=== PATIENT | male | born 1960 | race Caucasian/White ===

== ENCOUNTER 2016-03-28 19:02 | Emergency (ER) | payer SELFPAY ==
[2016-03-28] MEDS ORDERED: Sodium Chloride 0.9% 1,000 ML ONE (19:49)
[2016-03-28 20:12] LABS: #Basophils 0.1 thou/uL (0.0-0.2); #Eosinphils 0.1 thou/uL (0.0-0.7); #Lymphocytes 2.5 thou/uL (1.20-3.40); #Neutrophils 6.4 thou/uL (1.40-6.50); %Basophils 0.7 % (0.0-1.0); %Eosinophils 1.4 % (0.0-10.0); %Lymphocytes 24.4 % (21.0-51.0); %Monocytes 9.6 % (0.0-10.0); Red Blood Cell (RBC) Count 4.18 mill/uL (4.70-6.10); White Blood Cell (WBC) Count 10.1 thou/uL (4.8-10.8)
[2016-03-28 20:22] LABS: ALT (SGPT) 21 U/L (0-55); AST (SGOT) 23 U/L (5-34); Alkaline Phosphatase 109 U/L (40-150); Anion Gap 14 mmol/L (10-20); BUN (Urea Nitrogen) 18 mg/dL (8.4-25.7); Bilirubin, Total 0.2 mg/dL (0.2-1.2); Calc. Creatinine Clearance 0 mL/min (70-130); Carbon Dioxide 24 mmol/L (22-29); Chloride 108 mmol/L (98-107); Estimated GFR-MDRD Greater than 90; Globulin 2.7 g/dL (2.4-3.5); Protein, Total 6.8 g/dL (6.0-8.3)
--- NOTE | 2016-03-28 20:53 | ERRECORD ---
[facility] EMERGENCY RECORD ADMIN (19:58 MBOS) MERGE: Ambulance SatMar 28, 2016 18:54. HPI SEIZURE (19:18 JLOY) CHIEF COMPLAINT: Patient presents for evaluation of seizure, Patient presents for evaluation of postictal state, Patient presents for evaluation of Pt with a history of seizures. Friend called EMS for a seizure this am. Unk duration. Pt postictal when EMS arrived. Pt reports he doesn't remember anything before his arrival to the ER. Pt reports he takes dilantin 5tablets a day and he took it this am. HISTORIAN: History provided by patient, Additional history obtained from EMS. LOCATION: No localizing symptoms. QUALITY: Seizure quality described as 'seizure'. TIME COURSE: Patient unable to describe onset of symptoms, Symptoms have resolved. ASSOCIATED WITH: Associated with alcohol use, for greater than 6 months, No associated drug use, No associated fever, No associated headache, No associated palpitations, No associated trauma, PT with chronic alcohol use daily. EXACERBATED BY: Patient's condition exacerbated by nothing. RELIEVED BY: Patient's condition relieved spontaneously. ROS (19:20 JLOY) CONSTITUTIONAL: Historian denies chills, denies fever. EYES: Historian denies photophobia, denies vision changes. ENT: Historian denies rhinorrhea, denies sore throat. CARDIOVASCULAR: Historian denies chest pain, denies palpitations. RESPIRATORY: Historian denies cough, denies shortness of breath, denies sputum. GI: Historian denies abdominal pain, denies diarrhea, denies nausea, denies vomiting. GENITOURINARY MALE: Historian denies dysuria, denies hematuria. MUSCULOSKELETAL: Historian denies arthralgias, denies back pain, denies myalgias, denies neck pain. SKIN: Historian denies rash, denies skin changes. NEUROLOGIC: Historian denies dizziness, denies headache, denies paralysis, denies paresthesias, denies sensory changes. PAST MEDICAL HISTORY MEDICAL HISTORY: Flu vaccine not up to date, Tetanus immunization up to date, Pneumococcal vaccine not up to date, Past medical history includes neurological disease, generalized seizures. (19:09 MBOS) MALE SURGICAL HISTORY: Patient has no surgical history. (19:09 MBOS) PSYCHIATRIC HISTORY: No previous psychiatric history. (19:09 MBOS) SOCIAL HISTORY: Patient drinks every day, less than 5 drinks per day, Patient denies drug use, Patient &a-1R&a+25V*p+0X*[id number]*c202B*c15G*c2P*p-0X&a-25V&a+1R Name: Kiran Ying : 1960 M56 MedRec: [id number] AcctNum: [id number] Prepared: SatMar 28, 2016 20:47 by Interface Page 1 of 3 pMD [facility] EMERGENCY RECORD currently uses tobacco, smokes cigarettes, daily, Patient smokes 2 packs per day, "quite a bit sometimes" unsure how many packs. (19:09 MBOS) NOTES: Nursing records reviewed, Agree with nursing records. (19:23 JLOY) KNOWN ALLERGIES No Known Drug Allergies CURRENT MEDICATIONS (19:06 MBOS) Dilantin: CAPSULE : Strength - 30 mg : ORAL Patient Dose: 500 mg Oral 2 times a day. PHENobarbital: TABLET : Strength - 100 mg : ORAL Patient Dose: 1 tab(s) Oral 2 times a day. VITAL SIGNS VITAL SIGNS: BP: 124/85, Pulse: 106, Resp: 16, Temp: 99.2 (Oral), Pain: 0, O2 sat: 97 on Room Air, Time: 03/28/2016 19:04. (19:04 MBOS) BP: 134/86, Pulse: 86, Resp: 13, O2 sat: 99 on Room Air, Time: 03/28/2016 20:11. (20:11 MBOS) PHYSICAL EXAM (19:21 JLOY) CONSTITUTIONAL: Vital signs reviewed, Patient appears non toxic, Patient, oriented to person, oriented to place, responsive to verbal stimuli, Pt knows the year but unsure of day or month. HEAD: Head exam included findings of head atraumatic, normocephalic. EYES: Eye exam included findings of eyelids normal to inspection, Pupils equally round and reactive to light, Extraocular muscles intact, Conjunctiva normal, no nystagmus. ENT: Pharynx exam normal, Uvula exam normal, Tonsil exam normal, Mouth exam included findings of, mucous membranes dry. NECK: Neck exam included findings of normal range of motion, Trachea midline, no cervical adenopathy. RESPIRATORY CHEST: Respiratory exam included findings of no respiratory distress, No wheezing, Rales present, to the right lower lobe, Breath sounds not diminished, Chest exam included findings of chest movement symmetrical, Pt with clear lungs except for some very mild crackles at the Right lung base. CARDIOVASCULAR: Cardiovascular exam included findings of, rate tachycardic, rhythm regular. ABDOMEN MALE: Abdominal exam included findings of abdomen nontender, Bowel sounds normal. BACK: Back exam included findings of normal inspection, range of motion normal. UPPER EXTREMITY: Upper extremity exam included findings of inspection abnormal, abrasions present, minimal &a-1R&a+25V*p+0X*[id number]*c202B*c15G*c2P*p-0X&a-25V&a+1R Name: Kiran Ying : 1960 M56 MedRec: [id number] AcctNum: [id number] Prepared: SatMar 28, 2016 20:47 by Interface Page 2 of 3 pMD [facility] EMERGENCY RECORD small abrasion dorsum of left hand, Radial pulse normal, no cyanosis, no clubbing, no edema. LOWER EXTREMITY: Lower extremity exam included findings of inspection normal, Pedal pulse normal, no edema, no calf tenderness. NEURO: Julian coma scale 15, Neuro exam findings include patient oriented to, person, place, Speech normal, Cranial nerves intact, Deep tendon reflexes normal, no focal motor deficits, no focal sensory deficits, no cerebellar deficits, Babinski's negative, no nystagmus. SKIN: Skin exam included findings of skin warm, dry, and normal in color, no rash. PSYCHIATRIC: Normal affect. MEDICATION ADMINISTRATION SUMMARY Drug Name: Dilantin Extended, Dose Ordered: 300 mg, Route: Oral, Status: Given, Time: 20:40 03/28/2016, Drug Name: *sodium chloride 0.9 % intravenous, Dose Ordered: 1 L, Route: IV Fluid Infusion, Status: Held, Time: 19:52 03/28/2016, *Additional information available in notes, Detailed record available in Medication Service section. DOCTOR NOTES (20:32 JLOY) RE-EVALUATION: The patient's condition has improved, MS returned to normal. AAOx3. TEXT: Will give the pt his evening dose, instruct f/u with his neurologist. PROBLEM LIST No recorded problems DIAGNOSIS (20:31 JLOY) FINAL: PRIMARY: Seizure. PRESCRIPTION No recorded prescriptions DISPOSITION PATIENT: Disposition Type: Discharge, Disposition: *Discharge Home. (20:31 SHANELL) Patient left the department. (20:45 LYNNE) Jacobs: SHANELL=MD Adal, Gerard COXOS=BEATRICE Walter, Noemi &a-1R&a+25V*p+0X*[id number]*c202B*c15G*c2P*p-0X&a-25V&a+1R Name: Kiran Ying : 1960 M56 MedRec: [id number] AcctNum: [id number] Prepared: SatMar 28, 2016 20:47 by Interface Page 3 of 3 pMD MTDD
[2016-03-28 20:54] LABS: Calcium 8.6 mg/dL (7.8-10.44)
--- NOTE | 2016-03-28 21:03 | PICIS ---
[facility] EMERGENCY RECORD ADMIN MERGE: Ambulance SatMar 28, 2016 18:54. (19:58 MBOS) TRIAGE (19:06 MBOS) TRIAGE NOTES: had a seizure at home, brother called 911. Patient states he also had a seizure this morning. Hx of seizures. (19:06 MBOS) PATIENT: NAME: Kiran Ying, AGE: 56, GENDER: male, : Sun 1960, TIME OF GREET: SatMar 28, 2016 19:03, PREFERRED LANGUAGE: Bahamian, ETHNICITY: Not or , ECODE BILLING MAP: [facility] ER, SSN: [id number], Zip Code: [address], KG WEIGHT: 86.18, PHONE: , , , PERSON ID: [id number], PCP: unknown. (19:06 MBOS) COMPLAINT: EMS ROOM 3. (19:06 MBOS) ADMISSION: URGENCY: 3 Urgent, ADMISSION SOURCE: Home, TRANSPORT: AMBULANCE - [facility], BED: ER -03. (19:06 MBOS) ASSESSMENT: Assessment: A&O to person and year. Unsure of month or date. Oriented to place. Had a seizure at home. (19:09 MBOS) PAIN: No complaint of pain. (19:09 MBOS) IMMUNIZATIONS: Flu vaccine not up to date, Tetanus immunization up to date, Pneumococcal vaccine not up to date. (19:09 MBOS) SIRS SCORING: Heart Rate 55-109 (0), Temp range 96.8-101.1 (0), respiratory rate 12-24 (0), Mental Status altered: no (0). (19:09 MBOS) PROVIDERS: TRIAGE NURSE: Noemi Walter RN. (19:06 MBOS) VITAL SIGNS: BP 124/85, Pulse 106, Resp 16, Temp 99.2, (Oral), Pain 0, O2 Sat 97, on Room Air, Time 03/28/2016 19:04. (19:04 MBOS) PREVIOUS VISIT ALLERGIES: No Known Drug Allergies. (19:06 MBOS) No Known Drug Allergies. (19:09 MBOS) KNOWN ALLERGIES No Known Drug Allergies CURRENT MEDICATIONS (19:06 MBOS) Dilantin: CAPSULE : Strength - 30 mg : ORAL Patient Dose: 500 mg Oral 2 times a day. PHENobarbital: TABLET : Strength - 100 mg : ORAL Patient Dose: 1 tab(s) Oral 2 times a day. VITAL SIGNS VITAL SIGNS: BP: 124/85, Pulse: 106, Resp: 16, Temp: 99.2 (Oral), Pain: 0, O2 sat: 97 on Room Air, Time: 03/28/2016 19:04. (19:04 MBOS) BP: 134/86, Pulse: 86, Resp: 13, O2 sat: 99 on Room Air, Time: 03/28/2016 20:11. (20:11 MBOS) NURSING ASSESSMENT: SEIZURE (19:12 MBOS) &a-1R&a+25V*p+0X*r4032T*c202B*c15G*c2P*p-0X&a-25V&a+1R Name: Kiran Ying : 1960 M56 MedRec: [id number] AcctNum: [id number] Prepared: SatMar 28, 2016 20:54 by Interface Page 1 of 9 pMD [facility] EMERGENCY RECORD CONSTITUTIONAL: Patient arrives, via stretcher, via Emergency Medical Services, History obtained from patient, Patient appears comfortable, Patient cooperative, Patient alert, Patient is, oriented to person, oriented to place, oriented to year but not to date or month. In EMS report, he was post-ictal in the ambulance., Skin warm, Skin dry, Skin normal in color, Mucous membranes pink, Mucous membranes moist, Patient is well-groomed, Patient complains of seizure, Per report, patient had a seizure at home and his brother called 911. Also per report, he had a seizure this morning. Patient seems to have intermittent recollection of this, and does not remember the most recent seizure, only remembers arriving to the ER. PAIN: Patient rates pain as 0 out of 10. SEIZURE: Seizure assessment findings include patient not actively seizing, Patient not post-ictal currently, History of seizures, onset as adult, Date of last seizure unknown, Seizure not associated with drug use, Seizure not associated with alcohol use, Seizure not associated with head trauma, Seizure not associated with fever, Notes: No information available on the time and duration of seizure. ENT: Ear assessment findings include ear normal to inspection, Nasal assessment findings include nose normal to inspection, Mouth and throat assessment findings include mouth inspection normal, no associated fever, no associated headache, no associated decrease in oral intake, Notes: Patient denies any other complaints. SAFETY: Side rails up, Cart/Stretcher in lowest position, Call light within reach, Hospital ID band on, Seizure precautions:, side rails padded, restrictive clothing removed or loosened, room lights dimmed, noise reduced. NURSING PROCEDURE: WEBSPHERE ARCHITECT (19:40 MBOS) PATIENT IDENTIFIER: Patient actively involved in identification process, Patient's identity verified by patient stating name, Patient's identity verified by patient stating date, Patient's identity verified by hospital ID bracelet. WEBSPHERE ARCHITECT: Cardiac monitoring indicated for seizures, tachycardia, Patient placed on policy writer typist, Patient placed on non-invasive blood pressure monitor, with disposable blood pressure cuff applied, Patient placed on continuous pulse oximetry, Adult/pediatric oxisensor applied, Oxygen saturation 99%. SAFETY: Side rails up, Cart/Stretcher in lowest position, Call light within reach, Hospital ID band on. NURSING PROCEDURE: DISCHARGE NOTE (20:41 MBOS) DISCHARGE: Patient discharged to home, ambulating without assistance, patient walking, unaccompanied, Summary of Care printed/ provided, Discharge instructions given to patient, Simple or moderate discharge teaching performed, Above person(s) verbalized understanding of discharge instructions and follow-up care, Patient treated and evaluated by physician. &a-1R&a+25V*p+0X*o0401S*c202B*c15G*c2P*p-0X&a-25V&a+1R Name: Kiran Ying : 1960 M56 MedRec: [id number] AcctNum: [id number] Prepared: SatMar 28, 2016 20:54 by Interface Page 2 of 9 D [facility] EMERGENCY RECORD NURSING PROCEDURE: IV PATIENT IDENITIFIER: Patient actively involved in identification process, Patient's identity verified by patient stating name, Patient's identity verified by patient stating date, Patient's identity verified by hospital ID bracelet. (19:53 MBOS) IV SITE 1: IV therapy indicated for hydration, IV established, to the right antecubital, using an 18 gauge catheter, in one attempt, Saline lock established, Flushed with normal saline (mls): 10, Labs drawn at time of placement, labeled in the presence of the patient and sent to lab. (19:53 MBOS) FOLLOW-UP SITE 1: IV discontinued, due to patient being discharged, catheter intact. (20:41 MBOS) SAFETY: Side rails up, Cart/Stretcher in lowest position, Call light within reach, Hospital ID band on. (19:53 MBOS) NURSING PROCEDURE: NURSE NOTES (19:55 MBOS) NURSES NOTES: Patient is improving, Patient in no apparent distress, Beverage given to patient, Notes: Patient expressed that he does not want the IV fluids, urine tests, etc and he just wants to go home. He states, "Is all this really necessary? I'm fine. I just want to go home." Dr. Galeas notified and fluids held at this time pending bloodwork, which has already been drawn and sent to lab. NURSING PROCEDURE: TRANSPORT TO TESTS (19:28 KHER) PATIENT IDENTIFIER: Patient actively involved in identification process. TRANSPORT TO TESTS: Transport indicated to facilitate diagnosis, Patient transported to x-ray, via cart, Accompanied by x-ray nurse technician, Patient arrived in location at 1929, Patient departed location at 1935. FOLLOW-UP: After procedure, patient returned to emergency department. SAFETY: Side rails up, Cart/Stretcher in lowest position, Call light within reach, Hospital ID band on. ORDER DETAILS Order Name: Alcohol, Status: Active, Time: 19:17 03/28/2016, User: SHANELL, - Ordered for: MD Galeas Joshua, - Entered by: MD Galeas Joshua - SatMar 28, 2016 19:17, - Quantity: 1, Order Name: WEBSPHERE ARCHITECT ED, Status: Done, Time: 19:27 03/28/2016, User: LYNNE, - Ordered for: MD Galeas Joshua, - Entered by: MD Galeas Joshua - SatMar 28, 2016 19:17, - Quantity: 1, Order Name: CBC with Differential, Status: Active, Time: 19:17 &a-1R&a+25V*p+0X*a4389X*c202B*c15G*c2P*p-0X&a-25V&a+1R Name: Kiran Ying : 1960 M56 MedRec: [id number] AcctNum: [id number] Prepared: SatMar 28, 2016 20:54 by Interface Page 3 of 9 pMD [facility] EMERGENCY RECORD 03/28/2016, User: SHANELL, - Ordered for: MD Galeas Joshua, - Entered by: MD Galeas Joshua - SatMar 28, 2016 19:17, - Quantity: 1, Order Name: Comprehensive Metabolic Panel, Status: Active, Time: 19:17 03/28/2016, User: SHANELL, - Ordered for: MD Galeas Joshua, - Entered by: MD Galeas Joshua - SatMar 28, 2016 19:17, - Quantity: 1, Order Name: Dilantin, Status: Active, Time: 19:17 03/28/2016, User: SHANELL, - Ordered for: MD Galeas Joshua, - Entered by: MD Galeas Joshua - SatMar 28, 2016 19:17, - Quantity: 1, Order Name: SALINE LOCK, Status: Done, Time: 19:27 03/28/2016, User: LYNNE, - Ordered for: MD Galeas Joshua, - Entered by: MD Galeas Joshua - SatMar 28, 2016 19:17, - Quantity: 1, Order Name: Urinalysis with Microscopic, Status: Active, Time: 19:17 03/28/2016, User: SHANELL, - Ordered for: MD Galeas Joshua, - Entered by: MD Galeas Joshua - SatMar 28, 2016 19:17, - Quantity: 1, Order Name: XR Chest Pa & Lat STANDARD, Status: Active, Time: 19:18 03/28/2016, User: SHANELL, - Ordered for: MD Galeas Joshua, - Entered by: MD Galeas Joshua - SatMar 28, 2016 19:18, - Quantity: 1. MEDICATION ADMINISTRATION SUMMARY Drug Name: Dilantin Extended, Dose Ordered: 300 mg, Route: Oral, Status: Given, Time: 20:40 03/28/2016, Drug Name: *sodium chloride 0.9 % intravenous, Dose Ordered: 1 L, Route: IV Fluid Infusion, Status: Held, Time: 19:52 03/28/2016, *Additional information available in notes, Detailed record available in Medication Service section. MEDICATION SERVICE Dilantin Extended: Order: Dilantin Extended (phenytoin sodium extended) - Dose: 300 mg : Oral Ordered by: Gerard Galeas MD Entered by: Gerard Galeas MD SatMar 28, 2016 20:31 , Acknowledged by: Noemi Walter RN SatMar 28, 2016 20:33 Documented as given by: Noemi Walter RN SatMar 28, 2016 20:40 Patient, Medication, Dose, Route and Time verified prior to administration. Patient appears Awake and alert- acceptable, Correct patient, time, route, dose and medication confirmed prior to administration, Patient &a-1R&a+25V*p+0X*e3928S*c202B*c15G*c2P*p-0X&a-25V&a+1R Name: Kiran Ying : 1960 M56 MedRec: [id number] AcctNum: [id number] Prepared: SatMar 28, 2016 20:54 by Interface Page 4 of 9 pMD [facility] EMERGENCY RECORD advised of actions and side-effects prior to administration, Allergies confirmed and medications reviewed prior to administration, Patient in position of comfort, Side rails up, Cart in lowest position. sodium chloride 0.9 % intravenous: Order: sodium chloride 0.9 % intravenous (0.9 % sodium chloride) - Dose: 1 L : IV Fluid Infusion Notes: (Bolus) Ordered by: Gerard Galeas MD Entered by: Gerard Galeas MD SatMar 28, 2016 19:18 , Acknowledged by: Noemi Walter RN SatMar 28, 2016 19:48, Held by: Noemi Walter RN SatMar 28, 2016 19:52 Reason: Patient refused. HPI SEIZURE (19:18 JL) CHIEF COMPLAINT: Patient presents for evaluation of seizure, Patient presents for evaluation of postictal state, Patient presents for evaluation of Pt with a history of seizures. Friend called EMS for a seizure this am. Unk duration. Pt postictal when EMS arrived. Pt reports he doesn't remember anything before his arrival to the ER. Pt reports he takes dilantin 5tablets a day and he took it this am. HISTORIAN: History provided by patient, Additional history obtained from EMS. LOCATION: No localizing symptoms. QUALITY: Seizure quality described as 'seizure'. TIME COURSE: Patient unable to describe onset of symptoms, Symptoms have resolved. ASSOCIATED WITH: Associated with alcohol use, for greater than 6 months, No associated drug use, No associated fever, No associated headache, No associated palpitations, No associated trauma, PT with chronic alcohol use daily. EXACERBATED BY: Patient's condition exacerbated by nothing. RELIEVED BY: Patient's condition relieved spontaneously. ROS (19:20 JLOY) CONSTITUTIONAL: Historian denies chills, denies fever. EYES: Historian denies photophobia, denies vision changes. ENT: Historian denies rhinorrhea, denies sore throat. CARDIOVASCULAR: Historian denies chest pain, denies palpitations. RESPIRATORY: Historian denies cough, denies shortness of breath, denies sputum. GI: Historian denies abdominal pain, denies diarrhea, denies nausea, denies vomiting. GENITOURINARY MALE: Historian denies dysuria, denies hematuria. MUSCULOSKELETAL: Historian denies arthralgias, denies back pain, denies myalgias, denies neck pain. SKIN: Historian denies rash, denies skin changes. NEUROLOGIC: Historian denies dizziness, denies headache, denies paralysis, denies paresthesias, denies sensory changes. &a-1R&a+25V*p+0X*k5289T*c202B*c15G*c2P*p-0X&a-25V&a+1R Name: Kiran Ying : 1960 M56 MedRec: [id number] AcctNum: [id number] Prepared: SatMar 28, 2016 20:54 by Interface Page 5 of 9 pMD [facility] EMERGENCY RECORD PAST MEDICAL HISTORY MEDICAL HISTORY: Flu vaccine not up to date, Tetanus immunization up to date, Pneumococcal vaccine not up to date, Past medical history includes neurological disease, generalized seizures. (19:09 MBOS) MALE SURGICAL HISTORY: Patient has no surgical history. (19:09 MBOS) PSYCHIATRIC HISTORY: No previous psychiatric history. (19:09 MBOS) SOCIAL HISTORY: Patient drinks every day, less than 5 drinks per day, Patient denies drug use, Patient currently uses tobacco, smokes cigarettes, daily, Patient smokes 2 packs per day, "quite a bit sometimes" unsure how many packs. (19:09 MBOS) NOTES: Nursing records reviewed, Agree with nursing records. (19:23 JLOY) PHYSICAL EXAM (19:21 JLOY) CONSTITUTIONAL: Vital signs reviewed, Patient appears non toxic, Patient, oriented to person, oriented to place, responsive to verbal stimuli, Pt knows the year but unsure of day or month. HEAD: Head exam included findings of head atraumatic, normocephalic. EYES: Eye exam included findings of eyelids normal to inspection, Pupils equally round and reactive to light, Extraocular muscles intact, Conjunctiva normal, no nystagmus. ENT: Pharynx exam normal, Uvula exam normal, Tonsil exam normal, Mouth exam included findings of, mucous membranes dry. NECK: Neck exam included findings of normal range of motion, Trachea midline, no cervical adenopathy. RESPIRATORY CHEST: Respiratory exam included findings of no respiratory distress, No wheezing, Rales present, to the right lower lobe, Breath sounds not diminished, Chest exam included findings of chest movement symmetrical, Pt with clear lungs except for some very mild crackles at the Right lung base. CARDIOVASCULAR: Cardiovascular exam included findings of, rate tachycardic, rhythm regular. ABDOMEN MALE: Abdominal exam included findings of abdomen nontender, Bowel sounds normal. BACK: Back exam included findings of normal inspection, range of motion normal. UPPER EXTREMITY: Upper extremity exam included findings of inspection abnormal, abrasions present, minimal small abrasion dorsum of left hand, Radial pulse normal, no cyanosis, no clubbing, no edema. LOWER EXTREMITY: Lower extremity exam included findings of inspection normal, Pedal pulse normal, no edema, no calf tenderness. NEURO: Julian coma scale 15, Neuro exam findings include patient oriented to, person, place, Speech &a-1R&a+25V*p+0X*i4846M*c202B*c15G*c2P*p-0X&a-25V&a+1R Name: Kiran Ying : 1960 M56 MedRec: [id number] AcctNum: [id number] Prepared: SatMar 28, 2016 20:54 by Interface Page 6 of 9 pMD [facility] EMERGENCY RECORD normal, Cranial nerves intact, Deep tendon reflexes normal, no focal motor deficits, no focal sensory deficits, no cerebellar deficits, Babinski's negative, no nystagmus. SKIN: Skin exam included findings of skin warm, dry, and normal in color, no rash. PSYCHIATRIC: Normal affect. EVENTS TRANSFER: Triage to Emergency Emergency Room -03. (SatMar 28, 2016 19:06 MBOS) Removed from Emergency Emergency Room -03. (20:45 MBOS) DOCTOR NOTES (20:32 JLOY) RE-EVALUATION: The patient's condition has improved, MS returned to normal. AAOx3. TEXT: Will give the pt his evening dose, instruct f/u with his neurologist. PROBLEM LIST No recorded problems DIAGNOSIS (20:31 JLOY) FINAL: PRIMARY: Seizure. DISPOSITION PATIENT: Disposition Type: Discharge, Disposition: *Discharge Home. (20:31 JLOY) Patient left the department. (20:45 MBOS) INSTRUCTION (20:32 JLOY) DISCHARGE: SEIZURE, RECURRENT [ADULT]. FOLLOWUP: Enoch Reed, [place], Neurology, [address] [place] [address], [address], [facility] [address], [phone], Follow up with Specialist as soon as possible. PRESCRIPTION No recorded prescriptions IMAGING *DISCHARGE INSTRUCTIONS RECEIPT: Image captured from scanner. (20:44 MBOS) *SUPPLY CHARGE SHEET: Image captured from scanner. (20:45 MBOS) ADMIN DIGITAL SIGNATURE: MD Galeas Joshua. (20:32 JLOY) MD Galeas Joshua. (20:43 JLOY) RESULTS (20:43 JLOY) LABORATORY: Alcohol Collection DT: SatMar 28, 2016 20:00, Alcohol Less than 10 mg/dL, Range (Less than 10), The pharmacological &a-1R&a+25V*p+0X*t2930C*c202B*c15G*c2P*p-0X&a-25V&a+1R Name: Kiran Ying : 1960 M56 MedRec: [id number] AcctNum: [id number] Prepared: SatMar 28, 2016 20:54 by Interface Page 7 of 9 pMD [facility] EMERGENCY RECORD response to blood alcohol levels may vary from, individual to individual. Negative: Less than 10, mg/dL Toxic: 50 - 100 mg/dL , Depression of GLASS PULVERIZER EQUIPMENT OPERATOR: Greater than 100 mg/dL , Fatalities reported: Greater than 400 mg/dL . Comprehensive Metabolic Panel Collection DT: SatMar 28, 2016 20:00, Sodium 142 mmol/L, Range (136-145), Potassium 4.0 mmol/L, Range (3.5-5.1), *Chloride 108 - H mmol/L, Range (98-107), Carbon Dioxide 24 mmol/L, Range (22-29), Anion Gap 14 mmol/L, Range (10-20), BUN (Urea Nitrogen) 18 mg/dL, Range (8.4-25.7), Creatinine 0.79 mg/dL, Range (0.7-1.3), Estimated GFR-MDRD Greater than 90 , Reference Range for Estimated GFR: Greater than 90, mL/min/1.73 m2 NOTE: The MDRD equation has not been validated for use, with the elderly (over 70 years of age), women, patients with, serious comorbid condition or persons with extremes of body size, muscle, mass, or nutritional status. , Glucose 95 mg/dL, Range (70-105), Bilirubin, Total 0.2 mg/dL, Range (0.2-1.2), Protein, Total 6.8 g/dL, Range (6.0-8.3), NOTE: Plasma values are generally 0.3 to 0.5 g/dL higher than serum values, due to the presence of fibrinogen. , Albumin 4.1 g/dL, Range (3.5-5.0), Globulin 2.7 g/dL, Range (2.4-3.5), Alb/Glob Ratio 1.5 g/dL, Range (1.2-2.2), Alkaline Phosphatase 109 U/L, Range (40-150), AST (SGOT) 23 U/L, Range (5-34), ALT (SGPT) 21 U/L, Range (0-55). Dilantin Collection DT: SatMar 28, 2016 20:00, *Dilantin Less than 1.8 - L ug/mL, Range (10.0-20.0), Therapeutic Range: 10.0 - 20.0 mcg/mL Toxic Range: Greater than 30.0, mcg/mL . CBC with Differential Collection DT: SatMar 28, 2016 20:00, White Blood Cell (WBC) Count 10.1 thou/uL, Range (4.8-10.8), *Red Blood Cell (RBC) Count 4.18 - L mill/uL, Range (4.70-6.10), *Hemoglobin 13.5 - L g/dL, Range (14.0-18.0), Hematocrit 42.0 %, Range (42.0-52.0), &a-1R&a+25V*p+0X*q9347F*c202B*c15G*c2P*p-0X&a-25V&a+1R Name: Kiran Ying : 1960 M56 MedRec: [id number] AcctNum: [id number] Prepared: SatMar 28, 2016 20:54 by Interface Page 8 of 9 pMD [facility] EMERGENCY RECORD *Mean Corpuscular Volume 101.0 - H fl, Range (80.0-94.0), *Mean Corpuscular Hemoglobin 32.4 - H pg, Range (27.0-31.0), Mean Corpuscular HGB CONC 32.2 g/dL, Range (32.0-36.0), RBC Distribution Width 13.1 %, Range (11.5-14.5), Platelet Count 246 thou/uL, Range (130-400), *Mean Platelet Volume 6.0 - L fL, Range (7.4-10.4), %Neutrophils 64.0 %, Range (42.0-75.0), %Lymphocytes 24.4 %, Range (21.0-51.0), %Monocytes 9.6 %, Range (0.0-10.0), %Eosinophils 1.4 %, Range (0.0-10.0), %Basophils 0.7 %, Range (0.0-1.0), #Neutrophils 6.4 thou/uL, Range (1.40-6.50), #Lymphocytes 2.5 thou/uL, Range (1.20-3.40), *#Monocytes 1.0 - H thou/uL, Range (0.11-0.59), #Eosinphils 0.1 thou/uL, Range (0.0-0.7), #Basophils 0.1 thou/uL, Range (0.0-0.2). Jacobs: SHANELL=MD Adal, Gerard ESPINOZA=LIDA Michelle Kayce MBOS=BEATRICE Walter, Noemi &a-1R&a+25V*p+0X*o3135Q*c202B*c15G*c2P*p-0X&a-25V&a+1R Name: Kiran Ying : 1960 M56 MedRec: [id number] AcctNum: [id number] Prepared: SatMar 28, 2016 20:54 by Interface Page 9 of 9 pMD [facility] MEDICATION RECONCILIATION You were seen in the Emergency Department on: SatMar 28, 2016 KNOWN ALLERGIES No Known Drug Allergies MEDICATIONS GIVEN WHILE IN THE EMERGENCY DEPARTMENT Dilantin Extended (phenytoin sodium extended) - Dose: 300 milligram(s) : Oral HOME MEDICATIONS CONTINUE PRESCRIBED Dilantin : CAPSULE : Strength - 30 mg : ORAL Continue as prescribed Patient had been takin mg Oral 2 times a day. PHENobarbital : TABLET : Strength - 100 mg : ORAL Continue as prescribed Patient had been takin tab(s) Oral 2 times a day. &a-1R&a+25V*p+0X*d0307H*c202B*c15G*c2P*p-0X&a-25V&a+1R Name: Parnell, Kiran : 1960 M56 MedRec: [id number] AcctNum: [id number] Prepared: SatMar 28, 2016 20:54 by Interface pMD [facility]Jesus
--- NOTE | 2016-03-28 21:11 | RAD ---
TWO VIEWS OF THE CHEST HISTORY: Seizure. COMPARISON: None. FINDINGS: Single view of the chest shows a normal sized cardiomediastinal silhouette. There is no e vidence of consolidation, mass, or pleural effusion. Mild degenerative changes are seen in the spine . IMPRESSION No evidence of acute cardiopulmonary disease. POS: [facility]
== END 2016-03-28 20:38 | disposition home or self-care (01) ==
LOC: NAV ERS 19:02
DX: R56.9 Unspecified convulsions (principal); F17.210 Nicotine dependence, cigarettes, uncomplicated
CPT/HCPCS: 71020; 80053; 80185; 80307; 85025; 99284; G0479; J7050

== ENCOUNTER 2016-04-07 08:11 | Emergency (ER) | payer SELFPAY ==
[2016-04-07] MEDS ORDERED: Sodium Chloride 0.9% 1,000 ML ONE (08:23)
[2016-04-07 08:39] LABS: #Basophils 0.1 thou/uL (0.0-0.2); #Eosinphils 0.1 thou/uL (0.0-0.7); #Lymphocytes 1.2 thou/uL (1.20-3.40); #Neutrophils 7.3 thou/uL (1.40-6.50); %Basophils 0.8 % (0.0-1.0); %Eosinophils 1.1 % (0.0-10.0); %Lymphocytes 12.6 % (21.0-51.0); %Monocytes 10.5 % (0.0-10.0); Mean Platelet Volume 6.7 fL (7.4-10.4); Red Blood Cell (RBC) Count 3.99 mill/uL (4.70-6.10); White Blood Cell (WBC) Count 9.8 thou/uL (4.8-10.8)
[2016-04-07 08:51] LABS: Dilantin 12.4 ug/mL (10.0-20.0)
[2016-04-07 08:56] LABS: ALT (SGPT) 20 U/L (0-55); AST (SGOT) 21 U/L (5-34); Alkaline Phosphatase 102 U/L (40-150); Anion Gap 11 mmol/L (10-20); BUN (Urea Nitrogen) 22 mg/dL (8.4-25.7); Bilirubin, Total 0.4 mg/dL (0.2-1.2); Calc. Creatinine Clearance 0 mL/min (70-130); Calcium 8.6 mg/dL (7.8-10.44); Carbon Dioxide 21 mmol/L (22-29); Chloride 109 mmol/L (98-107); Estimated GFR-MDRD 83; Globulin 2.8 g/dL (2.4-3.5); Protein, Total 6.7 g/dL (6.0-8.3)
--- NOTE | 2016-04-07 09:12 | ERRECORD ---
[facility] EMERGENCY RECORD ADMIN (08:18 EPIE) MERGE: Ambulance Sat Apr 07, 2016 08:04. HPI SEIZURE (08:26 JLOY) CHIEF COMPLAINT: Patient presents for evaluation of seizure, Patient presents for evaluation of Pt was out hunting and had a seizure. Friend called EMS. Pt reports regular seizures, especially with his recent stress. Pt reports woke up when EMS arrived. No symptoms currently. Last saw Dr. Reed a few weeks ago. Not since last ER visit for the same 10 days ago. HISTORIAN: History provided by patient. LOCATION: No localizing symptoms. QUALITY: Seizure quality described as 'seizure'. TIME COURSE: Sudden onset of symptoms, Symptoms have resolved. ASSOCIATED WITH: Associated with alcohol use, No associated drug use, No associated fever, No associated headache, No associated palpitations, No associated trauma. EXACERBATED BY: Patient's condition exacerbated by stress. RELIEVED BY: Patient's condition relieved spontaneously. ROS (08:28 JLOY) CONSTITUTIONAL: Historian denies chills, denies fever. EYES: Historian denies eye pain, denies eye redness, denies eye discharge. ENT: Historian reports rhinorrhea, denies sore throat. chronic. CARDIOVASCULAR: Historian denies chest pain. RESPIRATORY: Historian denies cough, denies shortness of breath, denies sputum. GI: Historian denies abdominal pain, denies diarrhea, denies nausea, denies vomiting. GENITOURINARY MALE: Historian denies dysuria, denies hematuria. MUSCULOSKELETAL: Historian denies arthralgias, denies back pain, denies myalgias, denies neck pain. SKIN: Historian denies rash, denies skin changes. NEUROLOGIC: Historian denies dizziness, denies headache, denies paralysis, denies paresthesias, denies sensory changes. PAST MEDICAL HISTORY MEDICAL HISTORY: Flu vaccine not up to date, Tetanus immunization up to date, Pneumococcal vaccine not up to date, Past medical history includes neurological disease, generalized seizures. (08:19 BDON) MALE SURGICAL HISTORY: Patient has no surgical history. (08:19 BDON) PSYCHIATRIC HISTORY: No previous psychiatric history. (08:19 BDON) SOCIAL HISTORY: Patient drinks every day, less than 5 drinks per day, Patient denies drug use, Patient currently uses tobacco, smokes cigarettes, daily, Patient smokes 2 packs per day, &a-1R&a+25V*p+0X*k7906E*c202B*c15G*c2P*p-0X&a-25V&a+1R Name: Kiran Ying : 1960 M56 MedRec: [id number] AcctNum: [id number] Prepared: Sat Apr 07, 2016 12:26 by Interface Page 1 of 3 pMD [facility] EMERGENCY RECORD "quite a bit sometimes" unsure how many packs. (08:19 BDON) NOTES: Nursing records reviewed, Agree with nursing records. (08:29 JLOY) KNOWN ALLERGIES No Known Drug Allergies CURRENT MEDICATIONS Dilantin: CAPSULE : Strength - 30 mg : ORAL Patient Dose: 500 mg Oral 2 times a day. (08:16 BDON) Topamax: TABLET : Strength - 100 mg : ORAL Patient Dose: uk. (08:19 BDON) VITAL SIGNS VITAL SIGNS: BP: 129/82, Pulse: 97, Resp: 18, Pain: 0, O2 sat: 100, Time: 04/07/2016 08:13. (08:13 BDON) Temp: 97.8 (Oral), Time: 04/07/2016 08:16. (08:16 BDON) BP: 118/78, Pulse: 90, Resp: 18, O2 sat: 99 on Room Air, Time: 04/07/2016 08:30. (08:30 EPIE) BP: 118/78, Pulse: 89, Resp: 18, Pain: 0, Time: 04/07/2016 08:59. (08:59 BDON) PHYSICAL EXAM (08:28 JLOY) CONSTITUTIONAL: Vital signs reviewed, Patient appears non toxic, Patient alert and oriented to person, place and time. EYES: Eye exam included findings of eyelids normal to inspection, Pupils equally round and reactive to light, Conjunctiva normal. ENT: Pharynx exam normal, Uvula exam normal, Tonsil exam normal, Mouth exam included findings of, mucous membranes dry. NECK: Neck exam included findings of normal range of motion, Trachea midline. RESPIRATORY CHEST: Respiratory exam included findings of no respiratory distress, Breath sounds clear, No wheezing, No rales, No rhonchi, Chest exam included findings of chest movement symmetrical. CARDIOVASCULAR: Cardiovascular exam included findings of heart rate regular rate and rhythm, Heart sounds normal. ABDOMEN MALE: Abdominal exam included findings of abdomen nontender, Bowel sounds normal. BACK: Back exam included findings of normal inspection, range of motion normal. UPPER EXTREMITY: Upper extremity exam included findings of inspection normal, Radial pulse normal, no cyanosis, no clubbing, no edema. LOWER EXTREMITY: Lower extremity exam included findings of inspection normal, no edema, no calf tenderness. NEURO: [place] coma scale 15, Neuro exam findings include patient oriented to person, place and time, Speech normal. &a-1R&a+25V*p+0X*d4213J*c202B*c15G*c2P*p-0X&a-25V&a+1R Name: Kiran Ying : 1960 M56 MedRec: [id number] AcctNum: [id number] Prepared: Sat Apr 07, 2016 12:26 by Interface Page 2 of 3 pMD [facility] EMERGENCY RECORD SKIN: Skin exam included findings of skin warm, dry, and normal in color, no rash. PSYCHIATRIC: Normal affect. MEDICATION ADMINISTRATION SUMMARY Drug Name: *sodium chloride 0.9 % intravenous, Dose Ordered: 1 L, Route: IV Fluid Infusion, Status: Given, Time: 08:32 04/07/2016, *Additional information available in notes, Detailed record available in Medication Service section. DOCTOR NOTES (08:56 JLOY) TEXT: Pt insisted on leaving prior to complete results. Pt appears stable with recurrence of chronic seizure activity. Normal Dilantin level. Will D/C with f/u with Dr. Reed. PROBLEM LIST No recorded problems DIAGNOSIS (08:54 JLOY) FINAL: PRIMARY: Seizure. PRESCRIPTION No recorded prescriptions DISPOSITION PATIENT: Disposition Type: Discharge, Disposition: *Discharge Home. (08:54 JLOY) Patient left the department. (09:06 BDON) Jacobs: NEHAL=BEATRICE Tran, Kaylie PANCHAL=BEATRICE Valverde, Racheal REECE=MD Adal, Gerard &a-1R&a+25V*p+0X*e5346Q*c202B*c15G*c2P*p-0X&a-25V&a+1R Name: Kiran Ying : 1960 M56 MedRec: [id number] AcctNum: [id number] Prepared: Shaheen Apr 07, 2016 12:26 by Interface Page 3 of 3 pMD MTDD
--- NOTE | 2016-04-07 09:17 | PICIS ---
[facility] EMERGENCY RECORD ADMIN MERGE: Ambulance Sat Apr 07, 2016 08:04. (08:18 EPIE) TRIAGE (Sat Apr 07, 2016 08:15 BDON) TRIAGE NOTES: Seizure, currently awake and oriented. ([facility] Apr 07, 2016 08:15 BDON) PATIENT: NAME: Kiran Ying, AGE: 56, GENDER: male, : Sun 1960, TIME OF GREET: Sat Apr 07, 2016 08:12, PREFERRED LANGUAGE: Danish, ETHNICITY: Not or , ECODE BILLING MAP: [facility] ER, SSN: [id number], Zip Code: [address], KG WEIGHT: 86.18, PHONE: , , , PERSON ID: [id number], PCP: out of town. (Sat Apr 07, 2016 08:15 BDON) COMPLAINT: SEIZURE. ([facility] Apr 07, 2016 08:15 BDON) ADMISSION: URGENCY: 3 Urgent, ADMISSION SOURCE: Other, TRANSPORT: AMBULANCE - [facility], BED: TRIAGE. ([facility] Apr 07, 2016 08:15 BDON) ASSESSMENT: Assessment: [facility] brought patient to ER, under a bridge sleeping. Post dicticle on arrival, currently alert and oriented. Blood sugar 121, 127/86, HR 107, 98%. (08:19 BDON) TREATMENTS IN PROGRESS: Site: [facility], Gauge: 18. (08:19 BDON) PROVIDERS: TRIAGE NURSE: Kaylie Tran RN. ([facility] Apr 07, 2016 08:15 BDON) VITAL SIGNS: BP 129/82, Pulse 97, Resp 18, Pain 0, O2 Sat 100, Time 04/07/2016 08:13. (08:13 BDON) PREVIOUS VISIT ALLERGIES: No Known Drug Allergies. (Sat Apr 07, 2016 08:15 BDON) No Known Drug Allergies. (08:19 BDON) KNOWN ALLERGIES No Known Drug Allergies CURRENT MEDICATIONS Dilantin: CAPSULE : Strength - 30 mg : ORAL Patient Dose: 500 mg Oral 2 times a day. (08:16 BDON) Topamax: TABLET : Strength - 100 mg : ORAL Patient Dose: uk. (08:19 BDON) VITAL SIGNS VITAL SIGNS: BP: 129/82, Pulse: 97, Resp: 18, Pain: 0, O2 sat: 100, Time: 04/07/2016 08:13. (08:13 BDON) Temp: 97.8 (Oral), Time: 04/07/2016 08:16. (08:16 BDON) BP: 118/78, Pulse: 90, Resp: 18, O2 sat: 99 on Room Air, Time: 04/07/2016 08:30. (08:30 EPIE) BP: 118/78, Pulse: 89, Resp: 18, Pain: 0, Time: 04/07/2016 08:59. (08:59 BDON) &a-1R&a+25V*p+0X*b9143E*c202B*c15G*c2P*p-0X&a-25V&a+1R Name: Kiran Ying : 1960 M56 MedRec: [id number] AcctNum: [id number] Prepared: Sat Apr 07, 2016 12:31 by Interface Page 1 of 7 pMD [facility] EMERGENCY RECORD NURSING ASSESSMENT: SEIZURE (08:30 BDON) NURSING DIAGNOSIS: Nursing diagnosis: post seizure. CONSTITUTIONAL: Patient arrives, via [facility], History obtained from, Emergency Medical Services, Patient appears comfortable, Patient cooperative, Patient alert, Oriented to person, place and time, Skin warm, Skin dry, Skin normal in color. PAIN: Pain level 0 No Hurt, using faces pain scoring. SEIZURE: History of seizures, Notes: Alert and oriented. ENT: no complaint of congestion. SAFETY: Side rails up, Cart/Stretcher in lowest position, Hospital ID band on, Patient in view of the nursing station, Seizure precautions:, side rails padded. NURSING PROCEDURE: FILING OR REGISTRY CLERK (08:20 EPIE) FILING OR REGISTRY CLERK: Patient placed on cardiac rehabilitation specialist, Patient placed on non-invasive blood pressure monitor, with disposable blood pressure cuff applied, Patient placed on continuous pulse oximetry, Adult/pediatric oxisensor applied. FOLLOW-UP: After procedure, alarms set and on, After procedure, patient tolerating monitoring. NURSING PROCEDURE: DISCHARGE NOTE (08:59 BDON) DISCHARGE: Patient discharged to home, patient walking, unaccompanied, Summary of Care printed/ provided, Patient requested and was provided an electronic copy of Discharge Instructions, Transition record given to patient, Discharge instructions given to patient, Simple or moderate discharge teaching performed, Patient treated and evaluated by physician. VITAL SIGNS: BP: 118, / 78, Pulse: 89, Resp: 18, Pain: 0. NURSING PROCEDURE: IV IV SITE 1: IV established, to the right antecubital, using an 18 gauge catheter, Saline lock established, Notes: IV started by EMS [employer]. (08:22 EPIE) FOLLOW-UP SITE 1: After procedure, no drainage at IV site, After procedure, no swelling at IV site, After procedure, no redness at IV site. (08:22 EPIE) IV discontinued, by patient, catheter intact. (08:53 BDON) SAFETY: Notes: dressing to site, Physician notified of above findings. (08:53 BDON) NURSING PROCEDURE: LAB DRAW (08:34 EPIE) LAB DRAW: Initial lab draw performed, from vascular access device, existing IV site, R AC. NURSING PROCEDURE: NURSE NOTES NURSES NOTES: Notes: possible hallucinations....talking as if to someone in room remains calm no seizure activity. (08:46 BDON) &a-1R&a+25V*p+0X*d7502L*c202B*c15G*c2P*p-0X&a-25V&a+1R Name: Kiran Ying : 1960 M56 MedRec: [id number] AcctNum: [id number] Prepared: Sat Apr 07, 2016 12:31 by Interface Page 2 of 7 pMD [facility] EMERGENCY RECORD Notes: Pt states that he wants to go now. Pt then stated that he knows what he has and wants to leave. ERMD asked patient to wait for blood results. Pt said he will wait 5 more minutes. Pt then preceded to remove monitoring equipment. IV fluids almost done infusing. ERMD aware of current situation. Pt agitated but remain in bed at this time. RR even and unlabored. (08:51 EPIE) Notes: Pt ripped IV out. ERMD made aware. Some lab results have been completed. ERMD to discharge patient. (08:54 EPIE) Notes: States he wants to go home, alert, oriented X 4. (08:55 BDON) ORDER DETAILS Order Name: Alcohol, Status: Active, Time: 08:24 04/07/2016, User: SHANELL, - Ordered for: MD Galeas Joshua, - Entered by: MD Galeas Joshua - Sat Apr 07, 2016 08:24, - Quantity: 1, Order Name: FILING OR REGISTRY CLERK ED, Status: Done, Time: 08:25 04/07/2016, User: NEHAL, - Ordered for: MD Galeas Joshua, - Entered by: MD Galeas Joshua - Sat Apr 07, 2016 08:23, - Quantity: 1, Order Name: CBC with Differential, Status: Active, Time: 08:23 04/07/2016, User: SHANELL, - Ordered for: MD Galeas Joshua, - Entered by: MD Galeas Joshua - Sat Apr 07, 2016 08:23, - Quantity: 1, Order Name: Comprehensive Metabolic Panel, Status: Active, Time: 08:23 04/07/2016, User: SHANELL, - Ordered for: MD Galeas Joshua, - Entered by: MD Galeas Joshua - Sat Apr 07, 2016 08:23, - Quantity: 1, Order Name: Dilantin, Status: Active, Time: 08:23 04/07/2016, User: SHANELL, - Ordered for: MD Galeas Joshua, - Entered by: MD Galeas Joshua - Sat Apr 07, 2016 08:23, - Quantity: 1, Order Name: Topiramate (Topamax), Status: Canceled, Time: 08:38 04/07/2016, User: System, - Ordered for: MD Galeas Joshua, - Entered by: MD Galeas Joshua - Sat Apr 07, 2016 08:24, - Quantity: 1. MEDICATION ADMINISTRATION SUMMARY Drug Name: *sodium chloride 0.9 % intravenous, Dose Ordered: 1 L, Route: IV Fluid Infusion, Status: Given, Time: 08:32 04/07/2016, *Additional information available in notes, Detailed record available in Medication Service section. &a-1R&a+25V*p+0X*l3543F*c202B*c15G*c2P*p-0X&a-25V&a+1R Name: Kiran Ying : 1960 M56 MedRec: [id number] AcctNum: [id number] Prepared: Sat Apr 07, 2016 12:31 by Interface Page 3 of 7 pMD [facility] EMERGENCY RECORD MEDICATION SERVICE sodium chloride 0.9 % intravenous: Order: sodium chloride 0.9 % intravenous (0.9 % sodium chloride) - Dose: 1 L : IV Fluid Infusion Notes: (Bolus) Ordered by: Gerard Galeas MD Entered by: Gerard Galeas MD Sat Apr 07, 2016 08:23 Documented as given by: Racheal Valverde RN Sat Apr 07, 2016 08:32 Patient, Medication, Dose, Route and Time verified prior to administration. Amount given: 1L, IV SITE #1 IV fluids established for hydration, IV SITE #1 into right antecubital, IV SITE #1 1st bag hung, amount 1 Liter hung, IV SITE #1 bolus of 1000 ml established, via primary tubing, Catheter placement confirmed via flush prior to administration, IV site without signs or symptoms of infiltration during medication administration, No swelling during administration, No drainage during administration, IV flushed after administration, Correct patient, time, route, dose and medication confirmed prior to administration, Patient advised of actions and side-effects prior to administration, Allergies confirmed and medications reviewed prior to administration. : Follow Up : Response assessment performed, No signs or symptoms of allergic reaction noted, _IV SITE #1:_, IV fluid infusion discontinued, on Sat Apr 07, 2016 08:55, 25 minutes, ., Total amount infused: 950ml, IV Discontinued with catheter intact. (08:55 EPIE) HPI SEIZURE (08:26 JLOY) CHIEF COMPLAINT: Patient presents for evaluation of seizure, Patient presents for evaluation of Pt was out hunting and had a seizure. Friend called EMS. Pt reports regular seizures, especially with his recent stress. Pt reports woke up when EMS arrived. No symptoms currently. Last saw Dr. Reed a few weeks ago. Not since last ER visit for the same 10 days ago. HISTORIAN: History provided by patient. LOCATION: No localizing symptoms. QUALITY: Seizure quality described as 'seizure'. TIME COURSE: Sudden onset of symptoms, Symptoms have resolved. ASSOCIATED WITH: Associated with alcohol use, No associated drug use, No associated fever, No associated headache, No associated palpitations, No associated trauma. EXACERBATED BY: Patient's condition exacerbated by stress. RELIEVED BY: Patient's condition relieved spontaneously. ROS (08:28 JLOY) CONSTITUTIONAL: Historian denies chills, denies fever. EYES: Historian denies eye pain, denies eye redness, denies eye discharge. ENT: Historian reports rhinorrhea, denies sore throat. &a-1R&a+25V*p+0X*y8018Y*c202B*c15G*c2P*p-0X&a-25V&a+1R Name: Kiran Ying : 1960 M56 MedRec: [id number] AcctNum: [id number] Prepared: Sat Apr 07, 2016 12:31 by Interface Page 4 of 7 pMD [facility] EMERGENCY RECORD chronic. CARDIOVASCULAR: Historian denies chest pain. RESPIRATORY: Historian denies cough, denies shortness of breath, denies sputum. GI: Historian denies abdominal pain, denies diarrhea, denies nausea, denies vomiting. GENITOURINARY MALE: Historian denies dysuria, denies hematuria. MUSCULOSKELETAL: Historian denies arthralgias, denies back pain, denies myalgias, denies neck pain. SKIN: Historian denies rash, denies skin changes. NEUROLOGIC: Historian denies dizziness, denies headache, denies paralysis, denies paresthesias, denies sensory changes. PAST MEDICAL HISTORY MEDICAL HISTORY: Flu vaccine not up to date, Tetanus immunization up to date, Pneumococcal vaccine not up to date, Past medical history includes neurological disease, generalized seizures. (08:19 BDON) MALE SURGICAL HISTORY: Patient has no surgical history. (08:19 BDON) PSYCHIATRIC HISTORY: No previous psychiatric history. (08:19 BDON) SOCIAL HISTORY: Patient drinks every day, less than 5 drinks per day, Patient denies drug use, Patient currently uses tobacco, smokes cigarettes, daily, Patient smokes 2 packs per day, "quite a bit sometimes" unsure how many packs. (08:19 BDON) NOTES: Nursing records reviewed, Agree with nursing records. (08:29 JLOY) PHYSICAL EXAM (08:28 JLOY) CONSTITUTIONAL: Vital signs reviewed, Patient appears non toxic, Patient alert and oriented to person, place and time. EYES: Eye exam included findings of eyelids normal to inspection, Pupils equally round and reactive to light, Conjunctiva normal. ENT: Pharynx exam normal, Uvula exam normal, Tonsil exam normal, Mouth exam included findings of, mucous membranes dry. NECK: Neck exam included findings of normal range of motion, Trachea midline. RESPIRATORY CHEST: Respiratory exam included findings of no respiratory distress, Breath sounds clear, No wheezing, No rales, No rhonchi, Chest exam included findings of chest movement symmetrical. CARDIOVASCULAR: Cardiovascular exam included findings of heart rate regular rate and rhythm, Heart sounds normal. ABDOMEN MALE: Abdominal exam included findings of abdomen nontender, Bowel sounds normal. BACK: Back exam included findings of normal inspection, range of motion normal. UPPER EXTREMITY: Upper extremity exam included findings of inspection normal, Radial pulse normal, no cyanosis, no clubbing, no &a-1R&a+25V*p+0X*c5997U*c202B*c15G*c2P*p-0X&a-25V&a+1R Name: Kiran Ying : 1960 M56 MedRec: [id number] AcctNum: [id number] Prepared: Sat Apr 07, 2016 12:31 by Interface Page 5 of 7 pMD [facility] EMERGENCY RECORD edema. LOWER EXTREMITY: Lower extremity exam included findings of inspection normal, no edema, no calf tenderness. NEURO: [place] coma scale 15, Neuro exam findings include patient oriented to person, place and time, Speech normal. SKIN: Skin exam included findings of skin warm, dry, and normal in color, no rash. PSYCHIATRIC: Normal affect. EVENTS TRANSFER: Triage to Emergency Triage. (Sat Apr 07, 2016 08:15 BDON) Emergency Triage to Emergency Room -03. (08:16 BDON) Emergency Emergency Room -03 to -02. (08:18 EPIE) Removed from Emergency Emergency Room -02. (09:06 BDON) DOCTOR NOTES (08:56 JL) TEXT: Pt insisted on leaving prior to complete results. Pt appears stable with recurrence of chronic seizure activity. Normal Dilantin level. Will D/C with f/u with Dr. Reed. PROBLEM LIST No recorded problems DIAGNOSIS (08:54 JLOY) FINAL: PRIMARY: Seizure. DISPOSITION PATIENT: Disposition Type: Discharge, Disposition: *Discharge Home. (08:54 JL) Patient left the department. (09:06 BDON) INSTRUCTION (08:55 JL) DISCHARGE: RECURRENT SEIZURE ADULT. FOLLOWUP: Enoch Reed, [place], Neurology, [address] [place] [address], [address], [facility] [address], [phone], Follow up with Specialist as soon as possible. PRESCRIPTION No recorded prescriptions IMAGING (09:05 BDON) *DISCHARGE INSTRUCTIONS RECEIPT: Image captured from scanner. *SUPPLY CHARGE SHEET: Image captured from scanner. ADMIN DIGITAL SIGNATURE: BEATRICE Tran, Kaylie. (09:06 BDON) MD Adal, Gerard. (12:24 [facility]) RESULTS (08:53 [facility]) &a-1R&a+25V*p+0X*h2703X*c202B*c15G*c2P*p-0X&a-25V&a+1R Name: Kiran Ying : 1960 M56 MedRec: [id number] AcctNum: [id number] Prepared: [facility] Apr 07, 2016 12:31 by Interface Page 6 of 7 pMD [facility] EMERGENCY RECORD LABORATORY: Alcohol Collection DT: [facility] Apr 07, 2016 08:34, Alcohol Less than 10 mg/dL, Range (Less than 10), The pharmacological response to blood alcohol levels may vary from, individual to individual. Negative: Less than 10, mg/dL Toxic: 50 - 100 mg/dL , Depression of DRAFTING INSTRUCTOR: Greater than 100 mg/dL , Fatalities reported: Greater than 400 mg/dL . Dilantin Collection DT: [facility] Apr 07, 2016 08:34, Dilantin 12.4 ug/mL, Range (10.0-20.0), Therapeutic Range: 10.0 - 20.0 mcg/mL Toxic Range: Greater than 30.0, mcg/mL . CBC with Differential Collection DT: [facility] Apr 07, 2016 08:34, White Blood Cell (WBC) Count 9.8 thou/uL, Range (4.8-10.8), *Red Blood Cell (RBC) Count 3.99 - L mill/uL, Range (4.70-6.10), *Hemoglobin 13.1 - L g/dL, Range (14.0-18.0), *Hematocrit 39.0 - L %, Range (42.0-52.0), *Mean Corpuscular Volume 97.7 - H fl, Range (80.0-94.0), *Mean Corpuscular Hemoglobin 32.8 - H pg, Range (27.0-31.0), Mean Corpuscular HGB CONC 33.6 g/dL, Range (32.0-36.0), RBC Distribution Width 12.7 %, Range (11.5-14.5), Platelet Count 212 thou/uL, Range (130-400), *Mean Platelet Volume 6.7 - L fL, Range (7.4-10.4), *%Neutrophils 75.1 - H %, Range (42.0-75.0), *%Lymphocytes 12.6 - L %, Range (21.0-51.0), *%Monocytes 10.5 - H %, Range (0.0-10.0), %Eosinophils 1.1 %, Range (0.0-10.0), %Basophils 0.8 %, Range (0.0-1.0), *#Neutrophils 7.3 - H thou/uL, Range (1.40-6.50), #Lymphocytes 1.2 thou/uL, Range (1.20-3.40), *#Monocytes 1.0 - H thou/uL, Range (0.11-0.59), #Eosinphils 0.1 thou/uL, Range (0.0-0.7), #Basophils 0.1 thou/uL, Range (0.0-0.2). Jacobs: NEHAL=BEATRICE Tran, Kaylie PANCHAL=BEATRICE Valverde, Racheal REECE=MD Adal, Gerard &a-1R&a+25V*p+0X*y5068E*c202B*c15G*c2P*p-0X&a-25V&a+1R Name: Kiran Ying : 1960 M56 MedRec: [id number] AcctNum: [id number] Prepared: Sat Apr 07, 2016 12:31 by Interface Page 7 of 7 pMD [facility] MEDICATION RECONCILIATION You were seen in the Emergency Department on: Sat Apr 07, 2016 KNOWN ALLERGIES No Known Drug Allergies MEDICATIONS GIVEN WHILE IN THE EMERGENCY DEPARTMENT sodium chloride 0.9 % intravenous (0.9 % sodium chloride) - Dose: 1 liter(s) : IV Fluid Infusion HOME MEDICATIONS CONTINUE PRESCRIBED Dilantin : CAPSULE : Strength - 30 mg : ORAL Continue as prescribed Patient had been takin mg Oral 2 times a day. Topamax : TABLET : Strength - 100 mg : ORAL Continue as prescribed Patient had been taking: uk. &a-1R&a+25V*p+0X*l0286Y*c202B*c15G*c2P*p-0X&a-25V&a+1R [place] : 1960 M56 MedRec: [id number] AcctNum: [id number] Prepared: Sat Apr 07, 2016 12:31 by Interface pMJesus ROMERO
== END 2016-04-07 08:59 | disposition home or self-care (01) ==
LOC: NAV ERS 08:11
DX: R56.9 Unspecified convulsions (principal); F17.210 Nicotine dependence, cigarettes, uncomplicated
CPT/HCPCS: 80053; 80185; 80307; 85025; 99284; J7050

== ENCOUNTER 2020-06-17 09:09 | Emergency (ER) | payer OTHER, SELFPAY | END 2020-06-17 09:50 | disposition home or self-care (01) | LOC: NAV ERS 09:09 | DX: S91.332A Puncture wound without foreign body, left foot, initial encounter (principal); L08.9 Local infection of the skin and subcutaneous tissue, unspecified; W26.8XXA Contact with other sharp object(s), not elsewhere classified, initial encounter | CPT/HCPCS: 99283 ==

== ENCOUNTER 2020-07-04 16:13 | Emergency (ER) | payer SELFPAY | END 2020-07-04 17:05 | disposition left against medical advice (07) | LOC: NAV ERS 16:13 | DX: M25.572 Pain in left ankle and joints of left foot (principal); F17.210 Nicotine dependence, cigarettes, uncomplicated ==

== ENCOUNTER 2020-10-05 10:28 | Emergency (ER) | payer SELFPAY ==
[2020-10-05] MEDS ORDERED: Sodium Chloride 0.9% 100 ML ONE (10:58)
[2020-10-05] MEDS ORDERED: Ibuprofen 800 MG TAB ONE (10:58)
[2020-10-05] MEDS ORDERED: Ondansetron ODT 4 MG TAB ONE (10:58)
[2020-10-05] MEDS ORDERED: cefTRIAXone\\ROCEPHIN 1 GM VIAL ONE (10:58)
[2020-10-05] MEDS ORDERED: Sodium Chloride 0.9% 500 ML ONE (10:58)
[2020-10-05] MEDS ORDERED: Fentanyl 100 MCG/2 ML VIAL ONE ×3 (10:58→11:52)
[2020-10-05 11:08] LABS: #Basophils 0.1 thou/uL (0.0-0.2); #Eosinphils 0.2 thou/uL (0.0-0.7); #Lymphocytes 0.9 thou/uL (1.20-3.40); #Monocytes 1.1 thou/uL (0.11-0.59); %Basophils 1.2 % (0.0-1.0); %Eosinophils 2.5 % (0.0-10.0); %Lymphocytes 10.1 % (21.0-51.0); %Monocytes 11.5 % (0.0-10.0); %Neutrophils 74.8 % (42.0-75.0); Hemoglobin 15.4 g/dL (14.0-18.0); Mean Corpuscular HGB CONC 31.9 g/dL (32.0-36.0); Mean Corpuscular Hemoglobin 31.4 pg (27.0-31.0); Mean Corpuscular Volume 98.2 fL (78.0-98.0); Mean Platelet Volume 6.7 fL (7.4-10.4); Platelet Count 238 thou/uL (130-400); RBC Distribution Width 12.9 % (11.5-14.5); White Blood Cell (WBC) Count 9.3 thou/uL (4.8-10.8)
[2020-10-05 11:22] LABS: ALT (SGPT) 18 U/L (8-55); AST (SGOT) 14 U/L (5-34); Albumin 3.9 g/dL (3.4-4.8); Alkaline Phosphatase 145 U/L (40-110); Anion Gap 12 mmol/L (10-20); BUN (Urea Nitrogen) 14 mg/dL (8.4-25.7); Bilirubin, Total 0.1 mg/dL (0.2-1.2); Calc. Creatinine Clearance 0 mL/min (70-130); Calcium 9.4 mg/dL (7.8-10.44); Carbon Dioxide 26 mmol/L (23-31); Chloride 104 mmol/L (98-107); Globulin 3.5 g/dL (2.4-3.5); Glucose 96 mg/dL (80-115); Potassium 4.7 mmol/L (3.5-5.1); Protein, Total 7.4 g/dL (5.8-8.1); Sodium 137 mmol/L (136-145)
[2020-10-05] MEDS ORDERED: Dexamethasone 20 MG/5 ML VIAL ONE (11:45)
[2020-10-05] MEDS ORDERED: Dexamethasone 4 mg/ml Vial ONE (11:53)
== END 2020-10-05 12:14 | disposition home or self-care (01) ==
LOC: NAV ERS 10:28
DX: S90.912A Unspecified superficial injury of left ankle, initial encounter (principal); L03.116 Cellulitis of left lower limb; L23.7 Allergic contact dermatitis due to plants, except food; F17.210 Nicotine dependence, cigarettes, uncomplicated; Z79.899 Other long term (current) drug therapy
CPT/HCPCS: 80053; 85025; 96365; 96375; 96376; J0696; J1100; J3010; J3490; J7030; Q0162

== ENCOUNTER 2020-10-30 14:20 | Emergency (ER) | payer SELFPAY ==
[2020-10-30] MEDS ORDERED: Sulfameth/Trimethoprim DS 800-160mg TAB ONE (14:55)
[2020-10-30] MEDS ORDERED: methylPREDNISolone Sod Succ/PF 125 MG/2 ML VIAL ONE (14:55)
== END 2020-10-30 15:14 | disposition home or self-care (01) ==
LOC: NAV ERS 14:20
DX: L03.113 Cellulitis of right upper limb (principal); F17.210 Nicotine dependence, cigarettes, uncomplicated
CPT/HCPCS: 96372; 99283; J2930

== ENCOUNTER 2020-11-02 07:37 | Emergency (ER) | payer SELFPAY ==
[2020-11-02] MEDS ORDERED: Dexamethasone 4 mg/ml Vial ONE (08:21)
[2020-11-02] MEDS ORDERED: HYDROcodone/Acetaminophen 7.5/325 mg Tablet ONE (08:21)
[2020-11-02] MEDS ORDERED: Ondansetron ODT 4 MG TAB ONE (08:21)
== END 2020-11-02 08:45 | disposition home or self-care (01) ==
LOC: NAV ERS 07:37
DX: L23.7 Allergic contact dermatitis due to plants, except food (principal); F17.210 Nicotine dependence, cigarettes, uncomplicated
CPT/HCPCS: 96372; 99282; J1100; Q0162

== ENCOUNTER 2020-11-05 11:00 | Emergency (ER) | payer SELFPAY | END 2020-11-05 12:25 | disposition home or self-care (01) | LOC: NAV ERS 11:00 | DX: L23.7 Allergic contact dermatitis due to plants, except food (principal); F17.210 Nicotine dependence, cigarettes, uncomplicated | CPT/HCPCS: 99282 ==

== ENCOUNTER 2021-10-24 12:49 | Emergency (ER) | payer SELFPAY ==
[2021-10-24] MEDS ORDERED: predniSONE 20 MG TAB ONE (13:15)
[2021-10-24] MEDS ORDERED: diphenhydrAMINE 50 MG/ML VIAL ONE (13:15)
== END 2021-10-24 13:34 | disposition home or self-care (01) ==
LOC: NAV ERS 12:49
DX: L23.7 Allergic contact dermatitis due to plants, except food (principal); F17.210 Nicotine dependence, cigarettes, uncomplicated
CPT/HCPCS: 96372; 99282; J1200; J7512

== ENCOUNTER 2021-10-26 12:03 | Emergency (ER) | payer SELFPAY | END 2021-10-26 12:41 | disposition home or self-care (01) | LOC: NAV ERS 12:03 | DX: L23.7 Allergic contact dermatitis due to plants, except food (principal); G40.409 Other generalized epilepsy and epileptic syndromes, not intractable, without status epilepticus; F17.210 Nicotine dependence, cigarettes, uncomplicated; Z79.899 Other long term (current) drug therapy | CPT/HCPCS: 99282 ==

== ENCOUNTER 2021-11-03 20:33 | Emergency (ER) | payer SELFPAY | END 2021-11-03 21:48 | disposition home or self-care (01) | LOC: NAV ERS 20:33 | DX: L25.9 Unspecified contact dermatitis, unspecified cause (principal); I10 Essential (primary) hypertension; F17.210 Nicotine dependence, cigarettes, uncomplicated; Z79.899 Other long term (current) drug therapy | CPT/HCPCS: 99282 ==

== ENCOUNTER 2022-08-16 11:56 | Outpatient (CLI) | payer OTHER | END 2022-08-16 11:57 | disposition home or self-care (01) | LOC: NAV RAD 11:56 | PROVIDERS: ATTEND Family Medicine | DX: M25.511 Pain in right shoulder (principal) ==

== ENCOUNTER 2024-11-12 07:38 | Emergency (ER) | payer OTHER ==
[2024-11-12] MEDS ORDERED: Ondansetron PF 4 MG/2 ML Vial ONE (08:21)
[2024-11-12 08:43] LABS: INR-International Normal Ratio 1.0; Prothrombin Time 13.7 sec (12.0-14.7)
[2024-11-12 08:44] LABS: PTT 26.4 sec (22.9-36.1)
[2024-11-12 08:49] LABS: #Basophils 0.1 thou/uL (0.0-0.2); #Eosinophils 0.0 thou/uL (0.0-0.7); #Lymphocytes 1.1 thou/uL (1.20-3.40); #Monocytes 0.6 thou/uL (0.11-0.59); #Neutrophils 2.8 thou/uL (1.40-6.50); %Basophils 1.5 % (0.0-1.0); %Eosinophils 0.7 % (0.0-10.0); %Lymphocytes 23.8 % (21.0-51.0); %Monocytes 13.6 % (0.0-10.0); %Neutrophils 60.3 % (42.0-75.0); Hematocrit 31.0 % (42.0-52.0); Hemoglobin 10.4 g/dL (14.0-18.0); Manual Diff?? NO; Mean Corpuscular Hemoglobin 39.3 pg (27.0-31.0); Mean Corpuscular Volume 117.0 fl (78.0-98.0); Platelet Count 38 10x3/uL (130-400); Red Blood Cell (RBC) Count 2.65 mill/uL (4.70-6.10); White Blood Cell (WBC) Count 4.7 10x3/uL (4.8-10.8)
[2024-11-12 08:51] LABS: Anion Gap 13 mmol/L (10-20); BUN (Urea Nitrogen) 19 mg/dL (8.4-25.7); Calc. Creatinine Clearance 0 mL/min (70-130); Carbon Dioxide 20 mmol/L (23-31); Chloride 108 mmol/L (98-107); Potassium 3.9 mmol/L (3.5-5.1); Sodium 137 mmol/L (136-145)
[2024-11-12 08:52] LABS: ALT (SGPT) 37 U/L (Less than 45); AST (SGOT) 21 U/L (11-34); Albumin 3.9 g/dL (3.1-4.5); Alkaline Phosphatase 116 U/L (40-110); Bilirubin, Total 0.4 mg/dL (0.3-1.2); Calcium 8.9 mg/dL (7.6-10.4); Globulin 3.2 g/dL (2.4-3.5); Glucose 125 mg/dL (80-115)
[2024-11-12] MEDS ORDERED: Iopamidol 370 76% 100 ML VIAL ONE (09:00)
== END 2024-11-12 09:55 | disposition home or self-care (01) ==
LOC: NAV ERS 07:38
DX: S30.1XXA Contusion of abdominal wall, initial encounter (principal); D69.6 Thrombocytopenia, unspecified; J44.9 Chronic obstructive pulmonary disease, unspecified; I10 Essential (primary) hypertension; F17.210 Nicotine dependence, cigarettes, uncomplicated; Z79.51 Long term (current) use of inhaled steroids; Z79.899 Other long term (current) drug therapy; X58.XXXA Exposure to other specified factors, initial encounter
CPT/HCPCS: 71260; 74177; 80053; 85025; 85610; 85730; 94760; J2405; J3010; Q9967; 96374; 96375; 96376